=== PATIENT | female | born 1955 | race Caucasian/White ===

== ENCOUNTER 2020-06-04 08:18 | Inpatient (IN) ==
[2020-06-04] MEDS ORDERED: Ondansetron 4 MG/2 ML VIAL ONE (08:41)
[2020-06-04] MEDS ORDERED: *HR* Rocuronium Bromide 50 MG/5 ML VIAL ONE (08:41)
[2020-06-04] MEDS ORDERED: *HR* Succinylcholine 200 MG/10 ML VIAL IVP ONE (08:41)
[2020-06-04] MEDS ORDERED: *HR* Midazolam HCl 2 MG/2 ML VIAL ONE ×2 (08:41→09:50)
[2020-06-04] MEDS ORDERED: Lidocaine -MPF 2% 2 ML VIAL ONE (08:41)
[2020-06-04] MEDS ORDERED: *HR* FentaNYL (PF) 100 MCG/2 ML VIAL ONE ×2 (08:41→10:44)
[2020-06-04] MEDS ORDERED: Dexamethasone 4 MG/ML VIAL ONE (08:41)
[2020-06-04] MEDS ORDERED: *HR* Propofol 200 MG/20 ML VIAL IVP ONE (08:41)
[2020-06-04] MEDS ORDERED: Ropivacaine/PF 0.5% 30 ML VIAL ONE (08:43)
[2020-06-04] MEDS ORDERED: ROPIVACAINE/PF/NS 0.25% 1 EACH SYRINGE INTRAART ONE (08:43)
[2020-06-04] MEDS ORDERED: *HR* HYDROmorphone PF 0.5 MG/0.5 ML SYRINGE IVP PRN (08:58)
[2020-06-04] MEDS ORDERED: *HR* OxyCODONE Immed Rel 5 MG TABLET PO PRN ×2 (08:58→12:38)
[2020-06-04] MEDS ORDERED: Ondansetron 4 MG/2 ML VIAL IVP ONE (08:58)
[2020-06-04] MEDS ORDERED: *HR* Promethazine 25 MG/ML VIAL IVP PRN (08:58)
[2020-06-04] MEDS ORDERED: Lidocaine HCL 4 ML Topical Solution (Laryng-O-Jet Kit Sterile Pak) TP ONE (09:01)
[2020-06-04] MEDS ORDERED: CeFAZolin Syr 2,000MG/20 ML 2,000 MG/20 ML SYRINGE IVPB ONE (09:11)
[2020-06-04] MEDS ORDERED: Vancomycin 1,000 MG VIAL ONE (09:12)
[2020-06-04] MEDS ORDERED: Acetaminophen IV 1,000 MG/100 ML INFUS..BTL ONE (09:14)
[2020-06-04] MEDS ORDERED: Albumin Human 5% 0 GM/0 ML IV.SOLN ONE (09:14)
[2020-06-04] MEDS ORDERED: Ringers Solution, Lactated 1,000 ML IVC SCH ×2 (09:15→12:38)
[2020-06-04] MEDS ORDERED: Ethanol\\Acetic Acid\\Na Ace\\Ben 1,000 ML IRRIG.SOLN IR ONE (09:16)
[2020-06-04] MEDS ORDERED: EPHEDrine 50 MG/ML VIAL ONE (10:14)
[2020-06-04] MEDS ORDERED: *HR* PHENYLEPHRINE 1,000 MCG/10 ML SYRINGE IVP ONE (10:21)
[2020-06-04] MEDS ORDERED: Cholecalciferol (D-3) 1,000 UNIT (25MCG) TABLET PO SCH (12:38)
[2020-06-04] MEDS ORDERED: Cyanocobalamin (B-12) 1,000 MCG/ML VIAL IM SCH (12:38)
[2020-06-04] MEDS ORDERED: Loratadine 10 MG TABLET PO SCH (12:38)
[2020-06-04] MEDS ORDERED: *HR* OxyCODONE/APAP 5/325 TABLET PO PRN (12:38)
[2020-06-04] MEDS ORDERED: Ondansetron 4 MG/2 ML VIAL IVP PRN (12:38)
[2020-06-04] MEDS ORDERED: Aspirin Enteric Coated 81 MG Tablet PO SCH (12:38)
[2020-06-04] MEDS ORDERED: Naloxone 0.4 MG/ML INJ IVP PRN (12:38)
[2020-06-04] MEDS ORDERED: MOM Conc 10 ML UD.LIQ PO PRN (12:38)
[2020-06-04] MEDS ORDERED: Sennosides 8.6 MG TABLET PO PRN (12:38)
[2020-06-04 12:40] LABS: Hematocrit 38.3 % (35.3-44.9); Hemoglobin 12.4 g/dL (11.5-15.4)
[2020-06-04 15:33] VITALS: BP 146/92
[2020-06-04] MEDS ORDERED: *HR* Enoxaparin 30 MG/0.3 ML SYRINGE SQ SCH ×2 (18:00)
[2020-06-04] MEDS ORDERED: CeFAZolin 2 GM/120 ML BAG IVPB SCH (18:00)
== END 2020-06-04 19:00 | disposition other institution (70) | DRG 483 ==
LOC: SAMDAY 08:18 → 3NENU 12:38 → SAMDAY 18:03 → 3NENU 18:04
PROVIDERS: ADMIT Orthopaedic Surgery; ATTEND Orthopaedic Surgery